=== PATIENT | female | born 1965 | race Caucasian/White ===

== ENCOUNTER 2017-03-02 10:00 | Inpatient (IN) | payer MEDICAID, OTHER ==
[~2017-03-02] VITALS: Ht 162.6 cm; Wt 100.5 kg
[~2017-03-02 10:00] MED LIST: ASPI-664 PO; COZAAR PO; INSULIN SQ; ZANTAC PO
[2017-03-02] MEDS ORDERED: OMEP20CA16 PO (12:43)
[2017-03-02] MEDS ORDERED: INSU200I SQ (12:43)
[2017-03-02] MEDS ORDERED: ATOR20TA38 PO (12:44)
[2017-03-02] MEDS ORDERED: FER325 PO (12:44)
[2017-03-02] MEDS ORDERED: GABA100C14 PO (12:44)
[2017-03-02] MEDS ORDERED: INSU100I33 SC (12:45)
[2017-03-02] MEDS ORDERED: METF850T PO (12:45)
[2017-03-02] MEDS ORDERED: LOSA25TA2 PO (12:46)
[2017-03-02 13:38] VITALS: Ht 162.6 cm; Wt 100.5 kg
[2017-03-02 13:40] VITALS: BP 152/79; RESP 16
[2017-03-02 13:40] LABS: BASOPHIL # 0.1 10^3/ul (0.0-0.1); BASOPHILS % 0.6 % (0.0-2.0); EOSINOPHILS # 0.1 10^3/ul (0.0-0.5); EOSINOPHILS % 0.7 % (0.0-7.0); HEMATOCRIT 32.2 % (37.0-47.0); HEMOGLOBIN 10.4 g/dl (12.0-16.0); LYMPHOCYTES # 2.3 10^3/ul (0.8-2.9); LYMPHOCYTES % 26.9 % (15.0-51.0); MEAN CORPUSCULAR HEMOGLOBIN 25.9 pg (29.0-33.0); MEAN CORPUSCULAR HGB CONC 32.3 g/dl (32.0-37.0); MEAN CORPUSCULAR VOLUME 80.3 fl (82.0-101.0); MEAN PLATELET VOLUME 9.6 fl (7.4-10.4); MONOCYTE # 0.5 10^3/ul (0.3-0.9); MONOCYTES % 5.5 % (0.0-11.0); NEUTROPHIL # 5.6 10^3/ul (1.6-7.5); NEUTROPHILS % 65.7 % (39.0-77.0); PLATELET COUNT 366 10^3/UL (140-415); RED BLOOD COUNT 4.01 10^6/ul (4.20-5.40); RED CELL DISTRIBUTION WIDTH 16.1 % (11.5-14.5); WHITE BLOOD COUNT 8.5 10^3/ul (4.8-10.8)
[2017-03-02 13:44] LABS: INR 0.94; PROTIME 12.7 Sec (11.9-14.9)
[2017-03-02 13:49] LABS: ALBUMIN 3.9 g/dl (3.3-4.9); ALBUMIN/GLOBULIN RATIO 1.25; BILIRUBIN,INDIRECT 0.1 mg/dl (0-1.1); BILIRUBIN,TOTAL 0.1 mg/dl (0.2-1.3)
[2017-03-02 13:53] LABS: CREATININE 0.57 mg/dl (0.44-1.00); POTASSIUM 3.5 mmol/L (3.5-5.1)
== END 2017-03-02 15:31 | disposition home or self-care (01) | DRG 552 ==
LOC: REC 12:21
PROVIDERS: ADMIT Neurological Surgery; ATTEND Neurological Surgery
DX: M51.26 Other intervertebral disc displacement, lumbar region (principal); Z53.9 Procedure and treatment not carried out, unspecified reason
CPT/HCPCS: 80053; 82962; 85025; 85610; 85730; 86850; 86900; 86901

== ENCOUNTER 2017-03-31 12:39 | Inpatient (IN) | END 2017-04-07 18:35 | DRG 453 ==

== ENCOUNTER 2017-04-07 18:45 | Inpatient (IN) | END 2017-04-14 21:30 | disposition home health service (06) | DRG 561 ==

== ENCOUNTER 2017-12-06 22:56 | Emergency (ER) | END 2017-12-07 00:56 | disposition home or self-care (01) ==

== ENCOUNTER → 2018-06-16 | Outpatient (CLI) | payer OTHER ==
[~2018-06-16] MED LIST changes: +ALBU18HF INH; -ASPI-664 PO; +ATOR20TA38 PO; +BACL10TA PO; -COZAAR PO; +FER325 PO; +GABA100C14 PO; +IBUP-1542 PO; +INSU100I33 SC; +INSU200I SQ; -INSULIN SQ; +LANT3I SC; +LOSA25TA2 PO; +METF850T13 PO; +NOVO3I SC; +OMEP20CA16 PO; -ZANTAC PO
--- NOTE | 2018-06-16 18:28 | CONS ---
Assessment/Plan Assessment/Plan Hospital Course (Demo Recall) 53-year-old female who presents with severe bilateral hip pain. On examination she is most symptomatic with her greater trochanteric bursitis and IT band tendinitis. Radiographs and MRI did not show any significant osteoarthritis or any intra-articular pathology of her hips that explain her pain. A significant etiology may be her lumbar spine as she has previous major surgery in the location. At this time I will continue to treat her greater trochanteric bursitis conservatively. We will start physical therapy. If this fails will likely offer an injection to the patient. We will do one injection a time as she is diabetic with her last hemoglobin A1c above 8.0 Consultation Date/Type/Reason Admit Date/Time Date of Consultation: Jun 16, 2018 Reason for Consultation Bilateral hip pain Date/Time of Note DATE: 06/16/18 TIME: 18:16 Hx of Present Illness This is a 53-year-old female who presents with a history of bilateral hip pain. Patient states the pain is in the lateral aspect of the hip with some groin pain. The pain does radiate to the knee. The pain is worse since her lumbar spine surgery 2017. It is described as sharp at times and as a dull ache. The pain is rated as a 8/10 with activity and 8/10 at rest and is described as stabbing, throbbing, electrical, and burning. Walking tolerance is 1 block. Uses a walker for external support. The patient does admit to a limp. It is difficult to sleep on the affected side at night secondary to pain. There are symptoms to suggest referred pain from the back with radicular symptoms. Has numbness and tingling in bilateral feet. Treatment to date has included activity modification, support devices. The patient states that treatment to date has not provided adequate relief of symptoms, prompting consultation. Duration: More than a year Injury: No Walking tolerance: 1 block Limp: yes Support: Walker Stairs: Places both feet on a step before proceeding the next Physical Therapy: No Injections: No NSAID's: No Prior surgery: No Back pain: Yes Knee pain: Yes Risk of AVN : No Patient denies fever, chills, shortness of breath, chest pain, nausea/vomiting, constipation, diarrhea Past Medical History Diabetes Hypertension Orthopnea Constipation Depression Home Meds Active Scripts Ibuprofen* (Motrin*) 600 Mg Tab, 600 MG PO Q6, #30 TAB Prov:JANEEN CARPENTER PA-C 12/07/17 Baclofen* (Baclofen*) 10 Mg Tablet, 10 MG PO Q8, #20 TAB Prov:JANEEN CARPENTER PA-C 12/07/17 Albuterol Sulfate* (Ventolin HFA*) 18 Gm Hfa.aer.ad, 2 PUFF INH BID RESP THERAPY for 30 Days Prov:LAW JUNIOR 04/14/17 Insulin Aspart* (Novolog Insulin Pen*) 100 Unit/Ml Soln, 17 UNIT SC WITH MEALS for 30 Days Prov:LAW JUNIOR 04/14/17 Insulin Glargine* (Lantus*) 100 Unit/Ml Soln, 50 UNIT SC DAILY@20 for 30 Days Prov:LAW JUNIOR 04/14/17 Reported Medications Gabapentin* (Gabapentin*) 100 Mg Capsule, 200 MG PO QHS, #180 CAP 03/31/17 Losartan Potassium* (Cozaar*) 25 Mg Tablet, 25 MG PO DAILY, #30 TAB 03/02/17 Insulin Glargine,Hum.rec.anlog (Basaglar Kwikpen U-100) 100 Unit/1 Ml Insuln.pen, 30 UNIT SC BID 03/02/17 Metformin Hcl* (Metformin Hcl*) 850 Mg Tablet, 850 MG PO WITH MEALS, #30 TAB 03/02/17 Atorvastatin Calcium* (Atorvastatin Calcium*) 20 Mg Tablet, 20 MG PO QHS, #30 TAB 03/02/17 Ferrous Sulfate* (Ferrous Sulfate*) 325 Mg Tabec, 325 MG PO DAILY, TAB 03/02/17 Insulin Lispro (Humalog Kwikpen) 200 Unit/1 Ml Insuln.pen, 8 UNIT SQ AC MEALS, EA 03/02/17 Omeprazole* (Omeprazole*) 20 Mg Capsule.dr, 20 MG PO DAILY, #30 CAP 03/02/17 Allergies: Coded Allergies: No Known Allergy (Unverified , 04/07/17) Past Surgical History Bilateral shoulder surgery Right elbow surgery Left carpal tunnel release Lumbar spine decompression fusion 2018 Social History Alcohol Use: none Smoking Status: Unknown if ever smoked Drug Use: none Exam/Review of Systems Exam Vitals Weight: 205 pounds Height: 5 feet 4 inches Temperature: 98.4 Heart Rate: 81 Blood Pressure: 113/59 Respiratory Rate: 12 Exam General: Alert, oriented. Vital signs: Noted on the chart. Heart: Regular rate and rhythm. Lungs: No respiratory distress. No accessory muscle use. Musculoskeletal: Well developed female in no apparent distress. Gait demonstrates a bilateral Trendelenburg with antalgic components and no short leg component. Standing, the pelvis is level and supine there is no true leg length discrepancy. There is tenderness over trochanteric bursa and IT band. Positive Obers Test Range of motion: Flexion: 100 Extension: 0 Internal rotation: 10 External rotation: 30 Abduction: 45 Adduction: 10 Sitting there is no pelvic obliquity. Minimal to no pain at the extremes of motion of the affected hip. Skin was intact throughout both lower extremities. Sensation globally decreased to bilateral feet in stocking distribution. Neurovascular exam showed 5/5 strength in the abductors, quads, EHL/tibialis anterior/gastroc. Normal and symmetrical pulses were palpated in both the dorsalis pedis and posterior tibial arteries. There is no sign of venous stasis. Imaging Imaging The patient received a full set of films and personally reviewed by myself today in clinic including an AP pelvis and an AP and lateral of the affected hip. The hips are reduced. There is no significant loss of joint space. There is no osteophyte formation. There is no subchondral sclerosis. There are no subchondral cysts. There is no significant deformity of the the proximal femur, femoral neck, or acetabulum. The pelvis is in continuity. Bone quality radiographically: Fair Spinal hardware is partially visualized MRI of bilateral hips from outside facility personally reviewed: Mild right gluteus minimus and medius tendinosis with adjacent peritendinous edema Small focal tear of the anterior labrum Mild osteoarthritis of the right hip with partial thickness chondral loss FLASH MAYES MD Jun 16, 2018 18:27
--- NOTE | 2018-06-17 16:53 | RADRPT ---
PROCEDURE: XR BILATERAL HIPS. CLINICAL INDICATION: Pain in the hip joint pelvis and thighs. TECHNIQUE: 5 views were obtained. An AP view of the pelvis and frog lateral views of both hips wer e performed. COMPARISON: None. FINDINGS: Right side: The bones are osteopenic. There is femoral head over coverage and there is lateral acetab ular spurring. Findings can be seen with predominately pincer type impingement. There is no evidence for fracture or erosive change. There is mild SI joint arthrosis. Left side: The bones are osteopenic. There is femoral head over coverage and there is lateral acetabu lar spurring. Findings can be seen with predominately pincer type impingement. There is no evidence f or fracture or erosive change. There is no evidence for SI joint arthrosis. IMPRESSION: 1. Bilateral femoral head over coverage and lateral acetabular rim spurring which can predispose to p redominately pincer type impingement. 2. No evidence for fracture. 3. Mild right SI joint arthrosis. RPTAT: XX .Nick Wyatt MD, MD Date Time Electronically viewed and signed by .Nick Wyatt MD, on 06/17/2018 16:53 .T/
== END | disposition home or self-care (01) ==
LOC: HKI 10:24
PROVIDERS: ATTEND Orthopaedic Surgery Adult Reconstructive Orthopaedic Surgery
DX: M25.552 Pain in left hip (principal); M25.551 Pain in right hip
CPT/HCPCS: 73523; Z7500; G0463